=== PATIENT | female | born 2000 | race Two or more races ===

== ENCOUNTER 2024-03-22 19:24 | Emergency (ER) | payer OTHER, SELFPAY ==
[2024-03-22 20:10] VITALS: BP 112/62; PULSE 74; RESP 16; TEMP 36.9; O2SAT 98; BMI 23.3
--- NOTE | 2024-03-22 20:11 | ED.GENADULT ---
HPI - General Adult General Chief complaint: Animal Bite Stated complaint: dog bite Time Seen by Provider: 03/22/24 21:37 Source: patient Mode of arrival: ambulatory Limitations: no limitations and language barrier (Sammarinese-speaking journeyman electrician pv installer utilized) History of Present Illness ED Provider: Jayshree Crowe NP HPI narrative: Patient is a 24-year-old female who presents emergency department for evaluation, sustained a dog bite to the left flank yesterday evening at approximately 22:00 from a stray dog unknown vaccination status is unclear. No active bleeding to the area. Reports the area is painful to touch. Denies any pus-like drainage. Denies fevers or chills. Unaware of the date of last tetanus vaccination. Has not had prior rabies vaccination series Related Data Previous Rx's ?Medication ?Instructions ?Recorded amoxicillin 875 mg-potassium 1 tab PO BID #13 tabs 03/22/24 clavulanate 125 mg tablet Allergies Allergy/AdvReac Type Severity Reaction Status Date / Time No Known Allergies Allergy Verified 03/22/24 20:13 Review of Systems Review of Systems: Yes all other systems are reviewed and are negative PMFSH Past Medical History Attestation statement: The following information was validated with the patient. Source: old records reviewed Medical History (Updated 03/22/24 @ 22:25 by Jayshree Crowe CNP) Dog bite Social History Social History Advance Directives: No Advance Directives Information Provided: No Do you have a plan to hurt others: No Plan Physical Exam ED Vital Signs: Vital Signs - 24 hr 03/22/24 20:10 03/22/24 22:38 03/22/24 22:55 Temperature 98.4 F 97.8 F 97.8 F Pulse Rate 74 61 61 Respiratory Rate 16 16 16 Blood Pressure 112/62 114/67 114/67 Pulse Oximetry 98 100 100 Oxygen Delivery Method Room Air Room Air Room Air BMI result Body Mass Index 23.3 Appearance: Alert.?Oriented to person, place and time. No acute distress.?Normal affect.? CVS: Heart sounds normal. Normal heart rate and rhythm.? Pulses normal.?? Respiratory: No respiratory distress.? Lung sounds clear to auscultation bilaterally?? Abdomen: Soft and non-tender. Normoactive bowel sounds. Skin: Skin warm and dry.? Normal skin color.? Pictured below is the left flank Neuro: Moves all extremities spontaneously. Sensation intact bilaterally. Ambulates with normal steady gait. Course Course Course Narrative: RME: 24 yold female presents to the ED for left flank dog bite. Patient was bit by stray dog yesterday. Patient needs tdap shot and rabies vaccine Medications Administered Discontinued Medications Generic Name Dose Route Start Last Admin Trade Name Freq PRN Reason Stop Dose Admin Amoxicillin/Clavulanate Potassium 875 mg 03/22/24 22:25 03/22/24 22:54 Amoxicillin/Potassium Clav 875 Mg Tablet PO 03/22/24 22:26 875 mg ONCE ONE Administration Diphtheria/Tetanus/Acell Pertussis 0.5 ml 03/22/24 20:14 03/22/24 22:23 Diphth,Pertus(Acell),Tet Adult 0.5 Ml Syringe IM 03/22/24 20:15 0.5 ml .ONCE ONE Administration Rabies Immune Globulin 1,312 unit 03/22/24 22:15 03/22/24 22:22 Rabies Immune Globulin/Pf 1,500 Unit/5 Ml Vial 20 unit/kg (1312 unit) 03/22/24 22:16 1,312 unit IM Administration ONCE ONE Rabies Vaccine 1 ml 03/22/24 20:14 03/22/24 22:22 Rabies Vaccine (Pcec)/Pf 1 Ml Vial IM 03/22/24 20:15 1 ml .ONCE ONE Administration Medical Decision Making Medical Decision Making MDM Narrative: Patient is a 22-year-old female presents emergency department for evaluation after a bite to the left flank from a stray dog as per HPI. Overall well-appearing, nontoxic, afebrile. No active bleeding. Diffuse tenderness on examination, low suspicion for any acute intra-abdominal pathology/hematoma/extravasation. No indication for radiographic imaging. Tdap was updated, received rabies immunoglobulin as well as 1st dose of rabies vaccination. Provided with instructions regarding remainder rabies vaccination series. Initiating Augmentin for infection prophylaxis. Reviewed worrisome signs and symptoms that would warrant re-evaluation in the emergency department. All questions answered. Stable for discharge Differential Diagnosis Differential Diagnoses: The differential diagnosis associated with the presentation includes (See narrative above) External Record Review External record reviewed: Outpatient record Prescription Management I considered prescription management with: Pain Medication (Acetaminophen/ibuprofen) and Antibiotic Discharge Plan Discharge Clinical Impression: Dog bite Patient Disposition: Home, Self-Care Instructions: Animal Bite (ED), Rabies (ED) Additional Instructions: Rabies follow up with the [facility]: Upon discharge from the ED today, you will be contacted by the Infusion Center to schedule your follow up Rabies vaccines. You will need a total of 3 more injections. If for some reason you do not receive a call, please call the Infusion Center directly at [phone]. Follow up with your primary care provider after completion of the vaccine to have a titer drawn to ensure the vaccines effectiveness. Prescription for antibiotics was sent to your pharmacy. Please complete the entire course. Do not skip any doses or stopped taking early. You can take ibuprofen 200 mg, 3 tablets (600mg) every 6-8 hours as needed for pain, in addition to Tylenol 500 mg, 2 tablets (1,000mg) every 4-6 hours as needed for pain, but not to exceed 3 doses daily (3,000mg).? If you develop worsening pain, swelling, redness, pus-like drainage, fevers, chills, nausea, vomiting you should seek re-evaluation. Prescriptions: New amoxicillin-pot clavulanate 875-125 mg tablet 1 tab PO BID Qty: 13 0RF Referrals: Physician,None [Primary Care Provider] - Interventions: ED Discharge Assessment Last Done: 03/22/24 22:55 Discharge Date/Time: 03/22/24 23:11 Print Language: Sammarinese
[2024-03-22] MEDS: Rabies Vaccine (PCEC)/PF 1 ML VIAL IM (22:22)
[2024-03-22] MEDS: Rabies Immune Globulin/PF 1,500 UNIT/5 ML VIAL 1312 UNIT IM (22:22)
[2024-03-22] MEDS: Diphth,Pertus(ACell),Tet Adult 0.5 ML SYRINGE IM (22:23)
[2024-03-22 22:38] VITALS: BP 114/67; PULSE 61; RESP 16; TEMP 36.6; O2SAT 100
[2024-03-22] MEDS: Amoxicillin/Potassium Clav 875 MG TABLET PO (22:54)
[2024-03-22 22:55] VITALS: BP 114/67; PULSE 61; RESP 16; TEMP 36.6; O2SAT 100
== END 2024-03-22 23:11 | disposition home or self-care (01) ==
PROVIDERS: Emergency Provider Emergency Medicine
DX: S31.159A Open bite of abdominal wall, unspecified quadrant without penetration into peritoneal cavity, initial encounter (principal); W54.0XXA Bitten by dog, initial encounter; Y93.01 Activity, walking, marching and hiking; Y92.480 Sidewalk as the place of occurrence of the external cause; Y99.9 Unspecified external cause status; Z23 Encounter for immunization; Z20.3 Contact with and (suspected) exposure to rabies
CPT/HCPCS: 90375; 90471; 90675; 90715; 96372; 99283; 99284

== ENCOUNTER 2025-02-03 10:37 | Outpatient (AMB) | payer OTHER, SELFPAY ==
--- NOTE | 2025-02-03 10:48 | A.OFFPC_ITS ---
Vital Signs 02/03/25 10:50 Height 5 ft 5.75 in Weight 160 lb 2 oz BMI 26.0 BP 110/70 Blood Pressure Location Lt brachial Position Sitting Pulse 71 Pulse Source Pulse Oximeter Temp 97.5 F Temp Source Temporal Artery Scan Pulse Oximetry (%) 98 Oxygen Delivery Method Room Air Intake Visit Reasons: NEW PATIENT PHYSICAL Intake Note: Patient is a new patient here to establish care for Wellness. Transferring care from Unknown. Medical records have not been requested and not received. Online Banking Specialist Required: Yes Online Banking Specialist Language: Quality Checker Name: Sammie [id number] Information Interpreted: non-clinical & clinical Social Media Project Manager: Not Required per policy Accompanied by: Self / Same As Patient Allergies No Known Allergies Allergy (Verified 03/22/24 20:13) Medication List - Last Reconciled 02/03/25 by Lulu Mitchell MD No Known Home Meds Tobacco use date assessed: 02/03/25 Dental Screening Dental Screen Date: 02/03/25 Did you have a dental visit in the last 12 months?: No Did you have a dental problem in the last 6 months where you did not have access to dental care?: No Was dental information given to patient?: No HPI HPI Comments History of Present Illness Details Patient is a 24-year-old female presenting today to establish care. She moved to the From [facility] 3 years ago. Reports menstrual irregularity for 3-4 years, period would occur every 2-3 months, may last for 2- 3 weeks. Reports new facial hair growth over the past year. denies vision changes, galactorrhea or headaches. Reports she was told by her ebd teacher back in [place] that she has PCOS and was on OCPs for 3 months, but not anymore as she ran out. Reports unintentional weight gain, 10-15 lbs over past 3 months. Denies hair loss, constipation, diarrhea, heat or cold intolerance, skin changes. Does not exercise. Denies changes in diet, normally eats twice a day, rice, pasta, potatoes, vegetables, fish, chicken, salads. Eats home cooked meals mostly. PMH: none ALLERGIES: none MEDICATIONS: tylenol prn for headache FAMILY HISTORY: Denies any diseases in the family. No history of cancers, stroke or heart attack PASSENGER BARGE MASTER: last seen Obgyn in [facility] 2023, reports had pap smear done there in 07/2023, and reports had vaginal infection. SOCIAL HISTORY: denies smoking or illicit drug use. drinks alcohol socially. lives with , work in factory. Does not have kids. Sexually active, not on contraceptions. 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 1. Little interest or pleasure in doing things: nearly every day 2. Feeling down, depressed, or hopeless: not at all 3. Trouble falling or staying asleep, or sleeping too much: not at all 4. Feeling tired or having little energy: several days 5. Poor appetite or overeating: not at all 6. Feeling bad about yourself - or that you are a failure or have let yourself or your family down: not at all 7. Trouble concentrating on things, such as reading the newspaper or watching television: not at all 8. Moving or speaking so slowly that other people could have noticed. Or the opposite - being so fidgety or restless that you have been moving around a lot more than usual: not at all 9. Thoughts that you would be better off or of hurting yourself in some way: not at all Total score: 4 Depression Screening Interpretation: Positive Depression Screening Done: Yes Source: Developed by Drs. Jimmy Ruggiero, Lucero Villarreal, Mani Valdez and colleagues, with an educational jina from [employer]. Thrive Questionnaire Date Thrive assessed: 02/03/25 I am a: Patient What is your living situation today?: I have a steady place to live Within the past 12 months, did the food you bought not last and you didn't have the money to get more?: Never true Within the past 12 months, did you worry whether your food would run out before you got money to buy more?: Never true Do you have trouble paying for medicines?: No Do you have trouble getting transportation to medical appointments?: No Do you have trouble paying your heating and electricity bill?: No Do you have trouble taking care of your child, family member or friend?: No Do you have trouble with day-to-day activities such as bathing, preparing meals, shopping, managing finances, etc.?: No Are you currently unemployed and looking for a job?: No Are you interested in more education?: No Please select the resources that you would like help with: None Currently or been in a relationship where the following occur: No concerns reported THRIVE Score: 0 AUDIT C Alcohol Use Questionnaire (AUDIT-C) 1. How often do you have a drink containing alcohol?: Never Total Score: 0 SABAS-7 AMB Questionnaire SABAS-7 Date SABAS - 7 assessed: 02/03/25 Feeling nervous, anxious, or on edge: 0 = Not at all Not being able to stop or control worryin = Not at all Worrying too much about different things: 0 = Not at all Trouble relaxin = Not at all Being so restless that it is hard to sit still: 0 = Not at all Becoming easily annoyed or irritable: 0 = Not at all Feeling afraid as if something awful might happen: 0 = Not at all Total SABAS-7 score (0-4 normal; 5-9 mild; 10-14 moderate; 15-21 severe): 0 Source: Developed by Drs. Jimmy Ruggiero, Lucero Villarreal, Mani Valdez and colleagues, with an educational jina from [employer]. Review of Systems Narrative As per HPI Physical exam (Primary Care) Vital Signs: Last Vital Signs Temp 97.5 F 02/03/25 10:50 Pulse 71 02/03/25 10:50 BP 110/70 02/03/25 10:50 Pulse Ox 98 02/03/25 10:50 Oxygen Delivery Method Room Air 02/03/25 10:50 General: Well-appearing, alert, oriented ?3, in no acute distress. Cardiovascular: RRR, S1-S2 appreciated, no murmurs, rubs or gallops. Respiratory: Lungs clear to auscultation bilaterally, no wheezes, rales or rhonchi. Abdomen: Soft, nontender, nondistended. Normoactive bowel sounds. MSK: Normal range of motion in all extremities, no joint swelling or deformity. Skin: Chin hair growth BMI result Body Mass Index 26.0 Tobacco/Smoking Status: Tobacco use Status Tobacco use date assessed 02/03/25 02/03/25 10:58 Patient Tobacco Use Status Never used Tobacco 02/03/25 10:58 e-Cigarette/Vaping Use Never Used 02/03/25 10:58 PHQ-9: PHQ-9 Score PHQ-9: Total score 4 02/03/25 11:47 Depression Screening Interpretation: Positive Thrive Assessment: Date of Thrive Assessment Date Thrive assessed 02/03/25 02/03/25 10:58 Currently or been in a relationship where the following occur: No concerns reported Results AMB Test Urine AMB Test Urine Negative Last Edit by RONALD Schwab on 02/03/25 11:53 Coding Level of Care Code New Pt Level 4 (09595) Diagnoses Encounter to establish care Z76.89 Irregular periods N92.6 Weight gain R63.5 Assessment & Plan Assessment & Plan (1) Encounter to establish care: Comment: Patient here today to establish care. Code(s): Z76.89 - Persons encountering health services in other specified circumstances Category: Medical Plan: -will obtain blood work -or follow-up in 4 months for annual physical (2) Irregular periods: Comment: Patient reports irregular periods for 3-4 years, occurring every 2-3 months, lasting for 2-3 weeks. Reports new facial hair growth. Reports history of PCOS, was previously on OCPs by her ebd teacher Khalif Rosenberg. Currently not on any medications as she ran out of those. Also reports new weight gain without changes in diet. Code(s): N92.6 - Irregular menstruation, unspecified Category: Medical Plan: - urine test in clinic today is negative - check CBC, prolactin, testosterone, DHEA sulfate, and 17 hydroxyprogesterone - will refer to OBGYN for further evaluation (3) Weight gain: Comment: Patient reports 10-15 lb weight gain over the past 3 months, without changes in diet. Does not exercise. Code(s): R63.5 - Abnormal weight gain Category: Medical Plan: - Check TSH, CMP and lipid panel - advised on healthy diet and recommended to start exercising with goal of 30 minutes a day of moderate exercise V days a week. Orders: Orders Complete Blood Count Auto Diff Today N92.6 - Irregular menstruation, unspecified Prolactin Today N92.6 - Irregular menstruation, unspecified TSH reflex Free T4 Today N92.6 - Irregular menstruation, unspecified Lipid Panel with Reflex Today R63.5 - Abnormal weight gain AMB HCG Urine Test Today N92.6 - Irregular menstruation, unspecified 17 Hydroxyprogesterone Today N92.6 - Irregular menstruation, unspecified DHEA Sulfate Today N92.6 - Irregular menstruation, unspecified Testosterone, Free/Total Today N92.6 - Irregular menstruation, unspecified Comprehensive Met. Panel Today R63.5 - Abnormal weight gain Referrals PASSENGER BARGE MASTER Referral N92.6 - Irregular menstruation, unspecified Medications: Discontinued amoxicillin-pot clavulanate 875-125 mg Discontinued Reason: Patient Completed Course 1 tab PO BID 13 tabs 0RF
[2025-02-03 10:50] VITALS: BP 110/70; PULSE 71; TEMP 36.4; O2SAT 98; BMI 26.0
== END 2025-02-03 11:59 | disposition home or self-care (01) ==
LOC: HO.HMCH 10:38
PROVIDERS: Visit Provider Student in an Organized Health Care Education/Training Program
DX: N92.6 Irregular menstruation, unspecified (principal); R63.5 Abnormal weight gain; Z32.02 Encounter for pregnancy test, result negative

== ENCOUNTER → 2025-02-03 10:37 | Outpatient (BNVA) | payer OTHER, SELFPAY | PROVIDERS: Visit Provider Student in an Organized Health Care Education/Training Program | DX: R63.5 Abnormal weight gain (principal); N92.6 Irregular menstruation, unspecified; Z76.89 Persons encountering health services in other specified circumstances | CPT/HCPCS: 81025; 96127 ==

== ENCOUNTER 2025-02-04 09:53 | Outpatient (REF) | payer OTHER, SELFPAY ==
[2025-02-04 10:11] LABS: MANUAL DIFF FLAG NO
[2025-02-04 10:51] LABS: Hematocrit 42.3 % (37.0-47.0); Hemoglobin 13.3 g/dl (12.0-16.0); Imm Gran Abs Auto 0.03 X10*3/uL (0.00-0.03); Imm Gran Pct Auto 0.4 % (0.0-0.4); Lymphocytes Absolute Auto 2.4 X10*3/uL (1.2-4.9); Mean Corpuscular HGB Conc 31.4 g/dl (31.0-35.0); Mean Corpuscular Hemoglobin 26.1 pg (27.0-33.0); Mean Corpuscular Volume 82.9 fL (80.0-98.0); NRBC Abs Auto 0.000 X10*3/uL (0.0-0.012); NRBC Pct Auto 0.0 /100WBC (0.0-0.2); Platelet Count 252 X10*3/uL (160-400); Red Blood Count 5.10 X10*6/uL (4.20-5.50); White Blood Count 7.1 X10*3/uL (4.8-10.8)
[2025-02-04 11:41] LABS: Alanine Aminotransferase 16 U/L (0-31); Albumin Level 4.2 g/dL (3.5-5.0); Alkaline Phosphatase 89 U/L (39-117); Anion Gap 11 (12-20); Aspartate Amino Transferase 20 U/L (5-31); Blood Urea Nitrogen 11 mg/dL (9-16); Calcium 9.0 mg/dL (8.4-10.2); Carbon Dioxide 23 mmol/L (22-29); Chloride 109 mmol/L (96-108); Estimated Glomerular Filt Rate > 60; HDL Cholesterol 37 mg/dL (>40); Potassium 4.0 mmol/L (3.3-5.1); Sodium 139 mmol/L (135-145); Total Protein 7.5 g/dL (6.5-8.0); Triglycerides 43 mg/dL (<150)
[2025-02-04 13:28] LABS: Cholesterol 149 mg/dL (<200)
[2025-02-04 13:31] LABS: Reflex LDLD? No
[2025-02-13 15:12] LABS: Testosterone, Free 11.1 pg/mL (0.1-6.4)
== END 2025-02-04 09:54 | disposition home or self-care (01) ==
LOC: HO.LAB 09:53
PROVIDERS: PCP Student in an Organized Health Care Education/Training Program; Visit Provider Student in an Organized Health Care Education/Training Program
DX: R63.5 Abnormal weight gain (principal); N92.6 Irregular menstruation, unspecified; Z13.6 Encounter for screening for cardiovascular disorders
CPT/HCPCS: 36415; 80053; 80061; 82627; 83498; 84146; 84402; 84403; 84443; 85025

== ENCOUNTER 2025-03-30 10:36 | Outpatient (AMB) | payer OTHER, SELFPAY ==
--- NOTE | 2025-03-30 10:54 | MHC.OFFVIS ---
Vital Signs 03/30/25 10:55 Height 5 ft 5 in Weight 154 lb BMI 25.6 BP 124/76 Intake Visit Reasons: Irregular Menses Registered Medical Assistant Required: Yes Registered Medical Assistant Language: Real Estate Services Administrator Services: Registered Medical Assistant Present (in person) Information Interpreted: non-clinical & clinical Commissioned Police Officer: Commissioned Police Officer Present (Astrid CARDENAS) Accompanied by: Self / Same As Patient Allergies No Known Allergies Allergy (Verified 03/30/25 11:01) Is last menstrual period known: Yes Last menstrual period: 03/11/25 HPI Comments Details: Presenting complaining of irregular menstrual cycles associated with hair growth, no other associated symptoms PFSH Medical History History of PCOS Dog bite Surgical History No pertinent past surgical history Family History Mother Family history of PCOS HTN (hypertension) Social History Household Members: Spouse Housing: House Alcohol intake: current Alcohol intake frequency: holidays/special occasions only Patient Tobacco Use Status: Never used Tobacco e-Cigarette/Vaping Use: Never Used Second Hand Smoke Exposure: No Use of substances other than those prescribed or required for medical reasons: No service: No Current occupational status: employed 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 Sexually active: Yes Sexual orientation: Straight/Heterosexual Gender identity: Female Cognitive needs: No Hearing needs: No Vision needs: No Female Reproductive History Menstrual Age of Menarche: 14 Duration of menses: 3-5 days Date of last menstrual period: 03/11/25 control method: none Total pregnancies: 0 Review of Systems Const All systems reviewed & are unremarkable except as noted in HPI and below Card Reports as per HPI Resp Reports as per HPI GI Reports as per HPI and Reports no additional complaints Reports as per HPI Physical Exam Vital Signs: Last Vital Signs BP 124/76 03/30/25 10:55 BMI result Body Mass Index 25.6 Const General: cooperative, healthy appearing and comfortable Chest Chest palpation & inspection: normal inspection of the chest and normal palpation of entire chest wall Breast/axilla inspection: normal inspection of the breasts and normal inspection of the axillae Breast/axilla palpation: normal palpation of the breasts, normal palpation of the axillae and no axillary lymphadenopathy Resp Effort & Inspection: normal respiratory effort Auscultation: clear to auscultation bilaterally Percussion: percussion normal Cardio Palpation: normal PMI Rate: regular rate Rhythm: regular rhythm Heart sounds: no murmurs and no rubs Peripheral pulses: Peripheral pulses 2+ throughout GI Inspection: Yes normal to inspection Palpation (GI): Soft to palpation, nontender, no guarding, not rigid and No hepatosplenomegaly present Percussion: Yes normal to percussion Auscultation: normal bowel sounds Rectal Exam - Female: deferred General: Yes bladder normal to palpation External Female Exam: No lesion Speculum Exam - Vagina: normal appearance of the vagina, normal palpation, normal vaginal discharge and not erythematous Speculum Exam - Cervix: normal appearance of the cervix and normal palpation Bimanual exam- vagina & uterus: normal bimanual exam, normal palpation, uterine size normal, bladder normal to palpation, consistency normal and normal palpation Bimanual Exam- Adnexa, other: normal adnexae, no masses and no tenderness Results AMB Test Urine AMB Test Urine Negative Last Edit by Astrid Meier CMA on 03/30/25 11:12 Results Reviewed Results Reviewed: Laboratory Last Values Tst Clinic Negative 03/30/25 11:12 Assessment & Plan Assessment & Plan (1) Abnormal uterine bleeding (AUB): Code(s): N93.9 - Abnormal uterine and vaginal bleeding, unspecified Category: Medical Plan: Co testing done, GC and chlamydia taken CBC, TSH, HCG, and pelvic ultrasound ordered. Discussed with the patient the different causes of abnormal bleeding including thyroid disorders, uterine and ovarian pathology, endometrial hyperplasia, carcinoma and other potential causes. Discussed with the patient the work up including CBC (to r/o anemia), TSH, pelvic Ultrasound, endometrial biopsy to r/o endometrial pathology. All questions answered and the patient verbalized understanding. Instructed the patient to schedule an appointment for an endometrial biopsy in 2 weeks. (2) Hirsutism: Comment: Possible PCOS Code(s): L68.0 - Hirsutism Category: Medical Plan: Will order testosterone total and free and 17 hydroxyprogesterone. Instructions given the patient to schedule a follow-up appointment within 2 weeks Orders: Orders TSH reflex Free T4 Today N93.9 - Abnormal uterine and vaginal bleeding, unspecified Prolactin Today N93.9 - Abnormal uterine and vaginal bleeding, unspecified Complete Blood Count no Diff Today N93.9 - Abnormal uterine and vaginal bleeding, unspecified AMB HCG Urine Test Today Z32.02 - Encounter for test, result negative HCG Quantitative Today N93.9 - Abnormal uterine and vaginal bleeding, unspecified US pelvic and transvaginal Today N93.9 - Abnormal uterine and vaginal bleeding, unspecified Testosterone, Free/Total Today L68.0 - Hirsutism 17 Hydroxyprogesterone Today L68.0 - Hirsutism Coding Level of Care Code New Pt Level 3 (22680) Diagnoses Abnormal uterine bleeding (AUB) N93.9 Hirsutism L68.0
[2025-03-30 10:55] VITALS: BP 124/76; BMI 25.6
== END 2025-03-30 11:26 | disposition home or self-care (01) ==
LOC: HO.HWS 10:36
PROVIDERS: PCP Student in an Organized Health Care Education/Training Program; Visit Provider Obstetrics & Gynecology
DX: N93.9 Abnormal uterine and vaginal bleeding, unspecified (principal); L68.0 Hirsutism; Z32.02 Encounter for pregnancy test, result negative
CPT/HCPCS: 99203

== ENCOUNTER 2025-03-30 10:36 | Outpatient (REF) | payer OTHER, SELFPAY ==
[2025-03-30 12:36] LABS: Hematocrit 45.2 % (37.0-47.0); Hemoglobin 14.2 g/dl (12.0-16.0); Mean Corpuscular HGB Conc 31.4 g/dl (31.0-35.0); Mean Corpuscular Hemoglobin 25.8 pg (27.0-33.0); Mean Corpuscular Volume 82.2 fL (80.0-98.0); NRBC Abs Auto 0.000 X10*3/uL (0.0-0.012); NRBC Pct Auto 0.0 /100WBC (0.0-0.2); Platelet Count 310 X10*3/uL (160-400); Red Blood Count 5.50 X10*6/uL (4.20-5.50); White Blood Count 7.0 X10*3/uL (4.8-10.8)
== END 2025-03-30 10:37 | disposition home or self-care (01) ==
LOC: HO.LAB 10:36
PROVIDERS: PCP Student in an Organized Health Care Education/Training Program; Visit Provider Obstetrics & Gynecology
DX: L68.0 Hirsutism (principal); N93.9 Abnormal uterine and vaginal bleeding, unspecified; Z32.02 Encounter for pregnancy test, result negative; Z13.29 Encounter for screening for other suspected endocrine disorder
CPT/HCPCS: 36415; 81025; 83498; 84146; 84402; 84403; 84443; 84702; 85027

== ENCOUNTER 2025-03-30 11:51 | Outpatient (REF) | payer OTHER, SELFPAY ==
[2025-03-31 02:08] LABS: CT PCR NOT DETECTED (Not Detect.); NG PCR NOT DETECTED (Not Detect.)
== END 2025-03-30 11:52 | disposition home or self-care (01) ==
LOC: HO.LNP 11:51
PROVIDERS: Visit Provider Obstetrics & Gynecology
DX: L68.0 Hirsutism (principal); Z20.2 Contact with and (suspected) exposure to infections with a predominantly sexual mode of transmission
CPT/HCPCS: 87491; 87591; 87626; 88175